=== PATIENT | male | born 1945 | race Caucasian/White ===

== ENCOUNTER 2021-04-26 02:38 | Emergency (ER) | payer OTHER, MEDICAID, SELFPAY ==
[~2021-04-26] VITALS: Ht 162.6 cm; Wt 49.9 kg
[2021-04-26 02:48] VITALS: BP_SYST 146
--- NOTE | 2021-04-26 02:48 | NUR ---
Came in ER per haritha brought by [facility] Paramedics from home, AAOX3, [place] speaker, history given by daughter, breathing spontaneously at room air, not in distress noted. With chief complaints of generalized weakness and lethagy after taking a new pill given by her daughter. Known with ESRD on HD 3XA week MWF, Prostate Ca on chemo, no known surgical history. No known allergy. Vital signs stable
--- NOTE | 2021-04-26 02:50 | NUR ---
Seen and examined by Dr. Guillen
--- NOTE | 2021-04-26 03:20 | NUR ---
# 20 gauge angiocath placed to right hand. Use of asceptic technique. Opsite placed over site. Blood return noted. Blood for lab drawn from site. Flushed with 10 cc of normal saline. No evidence of infiltration noted. Patient tolerated well.
[2021-04-26] MEDS ORDERED: LEUP22.53 IM (03:44)
[2021-04-26] MEDS ORDERED: TAMS-11 PO (03:44)
[2021-04-26] MEDS ORDERED: CALC-823 PO (03:44)
[2021-04-26] MEDS ORDERED: L.RH1CAP PO (03:44)
[2021-04-26] MEDS ORDERED: B CO1CAP5 PO (03:44)
--- NOTE | 2021-04-26 03:44 | NUR ---
Medication reconciliation completed with information provided by the patient's daughter Liliam. Any prior medication reconciliation on file was reviewed and corrected.
[2021-04-26 03:55] LABS: BASOPHILS # (AUTO) 0.1 K/uL (0.0-0.2); BASOPHILS % (AUTO) 1.1 % (0.0-2.0); EOSINOPHILS # (AUTO) 0.2 K/uL (0.0-0.4); EOSINOPHILS % (AUTO) 2.7 % (0.0-4.0); HEMATOCRIT 24.7 % (36-54); LYMPHOCYTES # (AUTO) 1.8 K/uL (1.0-5.5); LYMPHOCYTES % (AUTO) 29.6 % (20.5-51.5); MEAN CORPUSCULAR HEMOGLOBIN 31 pg (27-31); MEAN CORPUSCULAR HGB CONC 33 % (32-36); MEAN CORPUSCULAR VOLUME 94 fL (79.0-98.0); MONOCYTES # (AUTO) 0.5 K/uL (0.0-1.0); NEUTROPHILS # (AUTO) 3.6 K/uL (1.8-7.7); NEUTROPHILS % (AUTO) 58.6 % (40.0-70.0); PLATELET COUNT (AUTO) 161 K/uL (130-430); RED BLOOD CELL COUNT(AUTO) 2.64 MIL/uL (4.2-6.2); RED CELL DISTRIBUTION WIDTH 17.4 % (9.0-15.0); WHITE BLOOD COUNT (AUTO) 6.1 K/uL (4.8-10.8)
[2021-04-26 04:14] LABS: ALANINE AMINOTRANSFERASE 22 U/L (12-78); ALBUMIN 2.1 g/dL (3.4-4.8); ANION GAP 7 (5-15); ASPARTATE AMINOTRANSFERASE 28 U/L (10-37); CHLORIDE 103 mmol/L (98-107); CREATININE 3.48 mg/dL (0.55-1.30); GLUCOSE 91 mg/dL (70-99); POTASSIUM 3.7 mmol/L (3.5-5.1); SODIUM SERUM 139 mmol/L (136-145); TOTAL BILIRUBIN 0.1 mg/dL (0.0-1.0); UREA NITROGEN, BLOOD 30 mg/dL (8-21)
[2021-04-26 04:16] LABS: CALCIUM 6.8 mg/dL (8.4-11.0)
--- NOTE | 2021-04-26 04:31 | NUR ---
Re-assesed by Dr. Guillen, for discharge
[2021-04-26 04:40] VITALS: BP_SYST 115
--- NOTE | 2021-04-26 04:40 | NUR ---
Patient given written and verbal discharge instructions and verbalizes understanding. ER MD discussed with patient the results and treatment provided. Patient in stable condition. ID arm band removed. IV catheter removed intact and dressing applied, no active bleeding. No Rx of given. Patient educated to follow up with PMD. Pain Scale 0/10. Opportunity for questions provided and answered. Medication side effect fact sheet provided.
== END 2021-04-26 04:40 | disposition home or self-care (01) ==
LOC: SED 02:38
DX: R53.1 Weakness (principal); Z79.899 Other long term (current) drug therapy
CPT/HCPCS: 36415; 80053; 85025; 99283